=== PATIENT | female | born 1965 | race African-American/Black ===

== ENCOUNTER 2017-03-29 09:21 | Emergency (ER) | payer MEDICAID ==
[~2017-03-29] VITALS: Ht 165.1 cm; Wt 120.0 kg
[~2017-03-29 09:21] MED LIST: ALBU6.7H INH; FLUT1DIS3 IH; HYDR12.529 PO; LEVO500T15 PO; LISI2.5T47 PO; P50 PO
[2017-03-29] MEDS ORDERED: ONDANSETRON 4MG ODT PO ONE (10:00)
[2017-03-29] MEDS ORDERED: HYDROCODONE/ACETAMINOPHEN 5/325MG TABLET PO ONE (10:00)
[2017-03-29] MEDS ORDERED: KETOROLAC 60MG/2ML VIAL IM ONE (10:00)
[2017-03-29] MEDS ORDERED: TRAMADOL 50MG TABLET PO ONE (10:45)
[2017-03-29 11:21] VITALS: BP 161/101
== END 2017-03-29 11:29 | disposition home or self-care (01) ==
LOC: ER 10:54
DX: G89.29 Other chronic pain (principal); M25.511 Pain in right shoulder; I10 Essential (primary) hypertension; E66.01 Morbid (severe) obesity due to excess calories; M65.20 Calcific tendinitis, unspecified site; J45.909 Unspecified asthma, uncomplicated; Z88.0 Allergy status to penicillin; Z88.5 Allergy status to narcotic agent; Z88.8 Allergy status to other drugs, medicaments and biological substances
CPT/HCPCS: 73030; 96372; 99284; J1885; Z7610; A4565

== ENCOUNTER 2019-03-03 18:58 | Emergency (ER) | payer MEDICAID ==
[~2019-03-03] VITALS: Ht 167.6 cm; Wt 108.0 kg
[~2019-03-03 18:58] MED LIST changes: -LEVO500T15 PO; +LEVO500T2 PO
[2019-03-03 21:44] VITALS: BP 155/62
== END 2019-03-03 21:45 | disposition home or self-care (01) ==
LOC: ER 18:58
DX: M54.5 Low back pain (principal); R51 Headache; J45.909 Unspecified asthma, uncomplicated; I10 Essential (primary) hypertension; Z98.890 Other specified postprocedural states; Z88.0 Allergy status to penicillin; Z88.6 Allergy status to analgesic agent; Z79.899 Other long term (current) drug therapy; V49.88XA Car occupant (driver) (passenger) injured in other specified transport accidents, initial encounter; Y93.89 Activity, other specified; Y92.89 Other specified places as the place of occurrence of the external cause; Y99.8 Other external cause status
CPT/HCPCS: 99283

== ENCOUNTER 2020-06-04 18:06 | Emergency (ER) | payer MEDICAID ==
[~2020-06-04] VITALS: Ht 165.1 cm; Wt 116.0 kg
[~2020-06-04 18:06] MED LIST changes: -ALBU6.7H INH; +ALBU6.7H11 INH
[2020-06-04 18:13] VITALS: BP 167/107
== END 2020-06-04 20:20 | disposition home or self-care (01) ==
LOC: ER 18:06
DX: S63.613A Unspecified sprain of left middle finger, initial encounter (principal); I10 Essential (primary) hypertension; J45.909 Unspecified asthma, uncomplicated; Z98.890 Other specified postprocedural states; Z88.8 Allergy status to other drugs, medicaments and biological substances; Z88.0 Allergy status to penicillin; Z88.6 Allergy status to analgesic agent; Z79.899 Other long term (current) drug therapy; Z79.82 Long term (current) use of aspirin; W22.8XXA Striking against or struck by other objects, initial encounter; Y93.89 Activity, other specified; Y92.89 Other specified places as the place of occurrence of the external cause; Y99.8 Other external cause status
CPT/HCPCS: 29130; 73130; 99283